=== PATIENT | male | born 1955 | race Caucasian/White ===

== ENCOUNTER 2022-06-18 10:39 | Emergency (ER) | payer BC ==
[~2022-06-18] VITALS: Ht 182.9 cm; Wt 77.1 kg
[2022-06-18 10:51] VITALS: BP 128/67
--- NOTE | 2022-06-18 11:10 | NUR ---
PT STATES FEELING MUCH BETTER S/P BOWEL MOVEMENT WHILE AT THE WAITING ROOM. NOT SEEN BY ER PHYSICIAN.
== END 2022-06-18 11:10 | disposition left against medical advice (07) ==
LOC: ER 11:00
DX: Z53.21 Procedure and treatment not carried out due to patient leaving prior to being seen by health care provider (principal); K59.00 Constipation, unspecified; I48.91 Unspecified atrial fibrillation